=== PATIENT | female | born 1990 | race Caucasian/White ===

== ENCOUNTER 2017-09-24 16:22 | Emergency (ER) | payer SELFPAY | END 2017-09-24 18:26 | disposition home or self-care (01) | PROVIDERS: Emergency Provider Nurse Practitioner Family; Visit Provider Nurse Practitioner Family | DX: J20.9 Acute bronchitis, unspecified (principal) | CPT/HCPCS: 71020; 99201 ==

== ENCOUNTER 2017-12-25 18:28 | Emergency (ER) | payer SELFPAY ==
[2017-12-25 18:29] VITALS: BP 115/71; PULSE 79; RESP 20; TEMP 36.9; O2SAT 99; BMI 25.7
--- NOTE | 2017-12-25 19:07 | HMH.EDUROGF ---
ED Disposition Clinical Impression: First trimester bleeding Disposition: Home, Self-Care Condition on Discharge: Fair Additional Instructions: 1- no sex or vaginal douches. 2- continue PNV. 3- rest and off work x 3 days. 4- B HCG outpatietn order 12/28/17. 5- follow up with dr Brower on MoDAY 12/29/17. 6- OBSERVE FOR ANY MORE BLEEDING, AND RETURN FOR BLOOD MORE THAN 5 PADS A DAY. Referrals: Mamadou Stephenson MD [Primary Care Provider] - - Critical Care Critical Care Time: No Attestation: On 12/25/17, the high probability of a clinically significant, sudden or life threatening deterioration of the following system(s) required my full and direct attention, intervention and personal management. The time I documented below is in addition to time spent performing reported procedures but includes the following listed in this critical care notation. Medical Decision Making - Miles Inquiry Pt receiving controlled substance: No Miles was queried for this patient: No Vital Signs: 12/25/17 18:29 Temperature 98.4 F Temperature Source Oral Pulse Rate [Right Radial] 79 Respiratory Rate 20 Blood Pressure [Right Arm] 115/71 Blood Pressure Mean [Right Arm] 85 Blood Pressure Source [Right Arm] Automatic Cuff Blood Pressure Position [Right Arm] Sitting 02 Sat by Pulse Oximetry 99 Oxygen Delivery Method Room Air - Lab Data Lab Results 12/25/17 18:45: Urine HCG, Qual Positive 12/25/17 19:35: WBC 8.4, RBC 4.63, Hgb 13.8, Hct 41.8, MCV 90.3, MCH 29.8, MCHC 33.0, RDW 12.6, Plt Count 271, MPV 9.8, Neut % (Auto) 59.4, Lymph % (Auto) 30.0, [place] % (Auto) 8.7, Eos % (Auto) 1.1, Baso % (Auto) 0.9, Neut # (Auto) 5.0, Lymph # (Auto) 2.5, [place] # (Auto) 0.7, Eos # (Auto) 0.1, Baso # (Auto) 0.1 12/25/17 19:35: Sodium 137, Potassium 3.6, Chloride 105, Carbon Dioxide 22, Anion Gap 13.6, BUN 8, Creatinine 0.46 L, Estimated Creat Clear 196, Estimated GFR 162, Est GFR ( Amer) 196, Glucose 73 L, Calcium 8.9, Total Bilirubin 0.2, AST 3 L, ALT 12, Alkaline Phosphatase 53, Total Protein 7.3, Albumin 3.7, Globulin 3.6 H, Albumin/Globulin Ratio 1.0 L, HCG, Quant [id number] H Result diagrams: 12/25/17 19:35 12/25/17 19:35 Orders (Tests/Meds): ORDERS Category Date Time Status ABO/RH Type Stat BBK 12/25/17 19:35 Received Medical Decision Narrative: The patient did have 83,000 beta-hCG level, I discussed with her in details follow-up plan, need another beta hCG on December 28 and follow-up with Dr. Munoz the next day on December 29. Female Urogenital HPI - General Chief complaint: OB/Uterine Contractions Stated complaint: Preg bleeding Time Seen by Provider: 12/25/17 19:40 Mode of Arrival: Ambulatory Limitations: No Limitations Description of Symptoms (Recalled from ER Triage Doc. by RN): pt had positive preg test and why at work started bleeding , pt staes she passed one lg clot but continues to have some bleeding . no cramping continues to be using the the pad - History of Present Illness HPI Narrative: 27 years old white female 1 para 0 A0. Her last menstrual period was November 06, 2017. The patient underwent positive test. They before going to work she had sexual intercourse with her spouse at 515PM and started spotting. Upon her arrival to work at 540 became heavier and she became concerned she came to the ED. she denies having abdominal pain or pelvic pain. Denies having back pain. MD Complaint: vaginal bleeding Onset (ago): hour(s) (2 hours.) Radiation: non-radiating Relieving factors: none Exacerbating factors: none Sexual activity: yes : yes Associated symptoms: denies other symptoms - Related Data Allergies Allergy/AdvReac Type Severity Reaction Status Date / Time No Known Allergies Allergy Verified 12/25/17 18:[address] [facility] History I have reviewed the patient's past medical history: Yes ROS Obtained: Yes All systems reviewed & no additional complaints Physi
--- NOTE | 2017-12-25 19:11 | ED_ITS ---
ED Disposition Clinical Impression: First trimester bleeding Disposition: Home, Self-Care Condition on Discharge: Fair Additional Instructions: 1- no sex or vaginal douches. 2- continue PNV. 3- rest and off work x 3 days. 4- B HCG outpatietn order 12/28/17. 5- follow up with dr Brower on MoDAY 12/29/17. 6- OBSERVE FOR ANY MORE BLEEDING, AND RETURN FOR BLOOD MORE THAN 5 PADS A DAY. Referrals: Mamadou Stephenson MD [Primary Care Provider] - - Critical Care Critical Care Time: No Attestation: On 12/25/17, the high probability of a clinically significant, sudden or life threatening deterioration of the following system(s) required my full and direct attention, intervention and personal management. The time I documented below is in addition to time spent performing reported procedures but includes the following listed in this critical care notation. Medical Decision Making - Miles Inquiry Pt receiving controlled substance: No Miles was queried for this patient: No Vital Signs: 12/25/17 18:29 Temperature 98.4 F Temperature Source Oral Pulse Rate [Right Radial] 79 Respiratory Rate 20 Blood Pressure [Right Arm] 115/71 Blood Pressure Mean [Right Arm] 85 Blood Pressure Source [Right Arm] Automatic Cuff Blood Pressure Position [Right Arm] Sitting 02 Sat by Pulse Oximetry 99 Oxygen Delivery Method Room Air - Lab Data Lab Results 12/25/17 18:45: Urine HCG, Qual Positive 12/25/17 19:35: WBC 8.4, RBC 4.63, Hgb 13.8, Hct 41.8, MCV 90.3, MCH 29.8, MCHC 33.0, RDW 12.6, Plt Count 271, MPV 9.8, Neut % (Auto) 59.4, Lymph % (Auto) 30.0 , [place] % (Auto) 8.7, Eos % (Auto) 1.1, Baso % (Auto) 0.9, Neut # (Auto) 5.0, Lymph # (Auto) 2.5, [place] # (Auto) 0.7, Eos # (Auto) 0.1, Baso # (Auto) 0.1 12/25/17 19:35: Sodium 137, Potassium 3.6, Chloride 105, Carbon Dioxide 22, Anion Gap 13.6, BUN 8, Creatinine 0.46 L, Estimated Creat Clear 196, Estimated GFR 162, Est GFR ( Amer) 196, Glucose 73 L, Calcium 8.9, Total Bilirubin 0.2, AST 3 L, ALT 12, Alkaline Phosphatase 53, Total Protein 7.3, Albumin 3.7, Globulin 3.6 H, Albumin/Globulin Ratio 1.0 L, HCG, Quant [id number] H Result diagrams: 12/25/17 19:35 12/25/17 19:35 Orders (Tests/Meds): ORDERS Category Date Time Status ABO/RH Type Stat BBK 12/25/17 19:35 Received Medical Decision Narrative: The patient did have 83,000 beta-hCG level, I discussed with her in details follow-up plan, need another beta hCG on December 28 and follow-up with Dr. Munoz the next day on December 29. Female Urogenital HPI - General Chief complaint: OB/Uterine Contractions Stated complaint: Preg bleeding Time Seen by Provider: 12/25/17 19:40 Mode of Arrival: Ambulatory Limitations: No Limitations Description of Symptoms (Recalled from ER Triage Doc. by RN): pt had positive preg test and why at work started bleeding , pt staes she passed one lg clot but continues to have some bleeding . no cramping continues to be using the the pad - History of Present Illness HPI Narrative: 27 years old white female 1 para 0 A0. Her last menstrual period was November 06, 2017. The patient underwent positive test. They before going to work she had sexual intercourse with her spouse at 515PM and started spotting. Upon her arrival to work at 540 became heavier and she became concerned she came to the ED. she denies having abdominal pain or
[2017-12-25 19:23] LABS: Urine Pregnancy, HCG Qual. Positive (Negative)
[2017-12-25 19:51] LABS: Basophils # 0.1 K/mm3 (0-0.2); Basophils % 0.9 % (0.1-2.0); Eosinophils # 0.1 K/mm3 (0.0-0.4); Eosinophils % 1.1 % (0.1-12.0); Hematocrit 41.8 % (37.0-47.0); Hemoglobin 13.8 g/dL (12.2-16.2); Lymphocytes # 2.5 K/mm3 (0.7-4.5); Mean Corpuscular Hemoglobin 29.8 pg (27.0-31.2); Mean Corpuscular Volume 90.3 fl (81-99); Mean Platelet Volume 9.8 fl (7.4-10.4); Monocytes # 0.7 K/mm3 (0.1-1.0); Monocytes % 8.7 % (1.7-9.3); Neutrophils % 59.4 % (37.0-80.0); Platelet Count 271 K/mm3 (142-424); Red Blood Count 4.63 M/mm3 (4.20-5.40); Red Cell Distribution Width 12.6 % (11.5-17.5); White Blood Count 8.4 K/mm3 (4.8-10.8)
[2017-12-25 20:26] LABS: Alanine Aminotransferase 12 U/L (12-78); Albumin Level 3.7 gm/dL (3.4-5.0); Alkaline Phosphatase 53 U/L (46-116); Anion Gap 13.6 mEq/L (5-15); Aspartate Amino Transferase 3 U/L (15-37); Bilirubin,Total 0.2 mg/dL (0.2-1.0); Blood Urea Nitrogen 8 mg/dL (7-18); Calcium 8.9 mg/dL (8.5-10.1); Carbon Dioxide 22 mmol/L (21.0-32.0); Chloride 105 mmol/L (98-107); Creatinine Clearance Estimated 196 mL/min (0-300); Creatinine,Serum 0.46 mg/dL (0.55-1.02); Estimated Glomerular Filt Rate 162 ml/min (>60); GFR (African American) 196 ML/MIN (>60); Globulin 3.6 gm/dl (1.3-3.2); Glucose 73 mg/dL (74-106); Potassium 3.6 mmoL/L (3.5-5.1); Sodium 137 mmol/L (136-145); Total Protein,Serum 7.3 gm/dL (6.4-8.2)
[2017-12-25 20:27] LABS: HCG,Quantitative 83681 mIU/mL
[2017-12-25 20:40] VITALS: BP 113/66; PULSE 76; RESP 20; TEMP 36.8; O2SAT 98
== END 2017-12-25 20:41 | disposition home or self-care (01) ==
PROVIDERS: Emergency Provider Emergency Medicine; Family Provider Family Medicine; PCP Family Medicine
DX: O20.9 Hemorrhage in early pregnancy, unspecified (principal); E16.2 Hypoglycemia, unspecified
CPT/HCPCS: 36415; 80053; 81025; 84702; 85025; 86900; 86901; 99211; 99282

== ENCOUNTER → 2017-12-28 12:14 | Outpatient (CLI) | payer SELFPAY | PROVIDERS: Visit Provider Emergency Medicine | DX: O26.851 Spotting complicating pregnancy, first trimester (principal) | CPT/HCPCS: 36415; 84702 ==

== ENCOUNTER → 2018-01-06 15:37 | Outpatient (CLI) | payer OTHER, SELFPAY ==
[2018-01-06 16:13] LABS: Basophils # 0.1 K/mm3 (0-0.2); Basophils % 0.7 % (0.1-2.0); Eosinophils # 0.1 K/mm3 (0.0-0.4); Eosinophils % 1.3 % (0.1-12.0); Hematocrit 43.3 % (37.0-47.0); Hemoglobin 14.7 g/dL (12.2-16.2); Lymphocytes # 1.3 K/mm3 (0.7-4.5); Lymphocytes % 17.3 K/mm3 (10-50); Mean Corpuscular HGB Conc 33.9 g/dL (31.8-35.4); Mean Corpuscular Hemoglobin 30.3 pg (27.0-31.2); Mean Corpuscular Volume 89.3 fl (81-99); Mean Platelet Volume 9.5 fl (7.4-10.4); Monocytes # 0.5 K/mm3 (0.1-1.0); Monocytes % 5.9 % (1.7-9.3); Neutrophils # 5.8 K/mm3 (1.8-7.8); Neutrophils % 74.9 % (37.0-80.0); Platelet Count 245 K/mm3 (142-424); Red Blood Count 4.85 M/mm3 (4.20-5.40); Red Cell Distribution Width 12.4 % (11.5-17.5); White Blood Count 7.8 K/mm3 (4.8-10.8)
[2018-01-08 15:33] LABS: HIV Screen 4th Generation wRfx Non Reactive (Non Reactive); Hepatitis B Surface Antigen Negative (Negative); Hepatitis C Antibody 0.1 s/co ratio (0.0-0.9); Rapid Plasma Reagin Ab Titer Non Reactive (NonRea<1:1)
== END ==
PROVIDERS: Family Provider Family Medicine; PCP Family Medicine; Visit Provider Nurse Practitioner Obstetrics & Gynecology
DX: Z34.90 Encounter for supervision of normal pregnancy, unspecified, unspecified trimester (principal); Z3A.08 8 weeks gestation of pregnancy
CPT/HCPCS: 36415; 85025; 86592; 86703; 86762; 86850; 87340; 87380; G0432

== ENCOUNTER → 2018-01-09 12:25 | Outpatient (CLI) | payer OTHER, SELFPAY ==
--- NOTE | 2018-01-09 12:26 | US_ITS ---
US OB transvaginal HISTORY: Evaluate for early ultrasound gestational age ITS.REASON: US OB- Dates ORDERING PHYSICIAN: Enrique Dominique MD PATIENT AGE: 27 years COMPARISON: None FINDINGS: An intrauterine gestational sac is present with a pole with a crown-rump length of 3.27cm correlating to gestational age of 10w2d. heart tones are present with an FHR of 164 bpm's. Yolk sac is noted. The amnion and chorion have not yet fused. The uterus is retroverted Adnexa: Unremarkable. IMPRESSION: Live intrauterine gestation at 10 weeks 2 days as described above.. Estimated due date by ultrasound is 08/05/2018
== END ==
PROVIDERS: Family Provider Family Medicine; PCP Family Medicine; Visit Provider Nurse Practitioner Obstetrics & Gynecology
DX: O26.841 Uterine size-date discrepancy, first trimester (principal)
CPT/HCPCS: 76830

== ENCOUNTER → 2018-03-17 08:06 | Outpatient (CLI) | payer BC, OTHER, SELFPAY ==
[2018-03-20 03:48] LABS: AFP Value 49.7 ng/mL (.); DIA MoM 0.69 (.); DIA Value 126.13 pg/mL (.); DSR (Second Trimester) 1 IN 10000 (.); Gest. Age on Collection Date 19.9 WEEKS (.); Insulin Dep Diabetes No (.); Maternal Age At EDD 29.5 yr (.); OSBR Risk 1 IN 10000 (.); Results Report (.); hCG MoM 0.73 (.); hCG Value 16453 mIU/mL (.); uE3 MoM 1.14 (.); uE3 Value 1.97 ng/mL (.)
[2018-03-20 06:27] LABS: Gestat. Age Based On EDD (.)
== END ==
PROVIDERS: Visit Provider Nurse Practitioner Obstetrics & Gynecology
DX: Z36.0 Encounter for antenatal screening for chromosomal anomalies (principal)
CPT/HCPCS: 36415; 82106

== ENCOUNTER → 2018-03-19 12:56 | Outpatient (CLI) | payer BC, OTHER, SELFPAY ==
--- NOTE | 2018-03-19 13:03 | US_ITS ---
US OB /maternal detail: INDICATION: ITS.REASON: US OB Complete-20wk Anatomy Scan ORDERING PHYSICIAN: Enrique Dominique MD PATIENT AGE: 28 years TECHNIQUE: ultrasound transabdominal scanning. COMPARISON: No previous relevant studies. FINDINGS: Single viable intrauterine gestation. Cephalic position. Placenta: Anterior placenta grade 1. There is average amount fluid. The cervix appears satisfactory. Closed and measuring 3 cm in length. Complete survey performed and was unremarkable on the submitted images as in PACS. No discrete anomalies identified on survey imaging by technologist. Active fetus. Three-vessel cord with satisfactory umbilical cord insertion. 4- chamber heart noted. Survey of brain & ventricles unremarkable. Face and neck survey unremarkable. Diaphragm and chest views unremarkable. Abdomen: Both kidneys noted and unremarkable. Stomach noted and satisfactory. Spine: Survey of the spine satisfactory with no anomalies identified nor imaged. Both arms and legs noted. Amniotic Fluid: Adequate. Maternal adnexa: No significant findings. Measurements: Average ultrasound age 20w5d. Gestational Age 20w21d. Estimated due date by ultrasound age 1008/01/2018. Estimated weight 359 grams. This is 67 percentile based on estimated due date BPD = 21w0d OFD = 20w5d HC = 20w0d AC = 20w3d FL = 21w0d Heart Rate = 156 bpm Cerebellum = 20w4d Humerus = 20w4d HC/AC is 1.15 (1.09-1.26). CI is 81% (70-86%). FL/BPD is 70%. FL/AC is 23%. IMPRESSION: Single live fetus in cephalic presentation with an average ultrasound age of 20 weeks 5 days. No obvious anomalies. All parameters correlate. Please see above for detail. Anterior grade 1 placenta. No previa or abruption with average appearing amniotic fluid volume
== END ==
PROVIDERS: PCP Family Medicine; Visit Provider Nurse Practitioner Obstetrics & Gynecology
DX: Z36.0 Encounter for antenatal screening for chromosomal anomalies (principal)
CPT/HCPCS: 76811

== ENCOUNTER → 2018-07-01 17:45 | Outpatient (REF) | payer BC, OTHER, SELFPAY | LOC: LAB 17:45 | PROVIDERS: Visit Provider Nurse Practitioner Obstetrics & Gynecology | DX: Z34.90 Encounter for supervision of normal pregnancy, unspecified, unspecified trimester (principal) | CPT/HCPCS: 86403 ==

== ENCOUNTER 2018-07-13 18:15 | Outpatient (CLI) | payer BC, OTHER, SELFPAY ==
[2018-07-13 18:20] VITALS: BP 121/62; PULSE 83; RESP 16; TEMP 37; O2SAT 98; BMI 33.1
[2018-07-13 18:32] VITALS: BMI 33.1
[2018-07-13 18:40] LABS: Microscopic, Urine URINE MICROSCOPIC (MICROSCOPIC)
[2018-07-13 18:45] LABS: Appearance,Urine SL CLOUDY (Clear); Bilirubin,Urine Negative (Negative); Blood, Urine Negative (Negative); Color,Urine YELLOW (Yellow); Glucose,Urine (UA) Negative (Negative); Ketones,Urine Negative (Negative); Leukocyte Esterase,Urine 1+ (Negative); Nitrate,Urine Negative (Negative); Protein,Urine Negative (Negative); Specific Gravity, Urine 1.025 (1.005-1.030); Urobilinogen,Urine 0.2 EU/dl (0.2)
[2018-07-13 18:55] LABS: Bacteria,Urine 4+ /lpf
== END 2018-07-13 20:14 | disposition home or self-care (01) ==
LOC: OBOUT 18:19 → OB 18:20
PROVIDERS: PCP Nurse Practitioner Obstetrics & Gynecology; Visit Provider Obstetrics & Gynecology
DX: O47.03 False labor before 37 completed weeks of gestation, third trimester (principal); Z3A.36 36 weeks gestation of pregnancy
CPT/HCPCS: 59025; 81001; 87086

== ENCOUNTER 2018-07-14 13:41 | Outpatient (CLI) | payer BC, OTHER, SELFPAY ==
[2018-07-14 13:59] VITALS: BP 111/66; PULSE 94; RESP 16; TEMP 36.8; O2SAT 97; BMI 33.1
== END 2018-07-14 14:50 | disposition home or self-care (01) ==
LOC: OBOUT 13:42 → OB 13:43
PROVIDERS: PCP Nurse Practitioner Obstetrics & Gynecology; Visit Provider Nurse Practitioner Obstetrics & Gynecology
DX: O47.03 False labor before 37 completed weeks of gestation, third trimester (principal); Z3A.36 36 weeks gestation of pregnancy
CPT/HCPCS: 59025

== ENCOUNTER 2018-07-24 20:04 | Inpatient (IN) ==
[2018-07-24 20:38] VITALS: BP 119/76
[2018-07-24 20:42] LABS: Microscopic, Urine URINE MICROSCOPIC (MICROSCOPIC)
[2018-07-24 20:53] LABS: Appearance,Urine CLOUDY (Clear); Bilirubin,Urine Negative (Negative); Blood, Urine Negative (Negative); Color,Urine YELLOW (Yellow); Glucose,Urine (UA) Negative (Negative); Ketones,Urine Negative (Negative); Leukocyte Esterase,Urine 2+ (Negative); Protein,Urine Negative (Negative); Specific Gravity, Urine 1.015 (1.005-1.030); Urobilinogen,Urine 0.2 EU/dl (0.2)
[2018-07-24 20:57] LABS: Amorphous Sediment,Urine Trace /lpf; Bacteria,Urine Trace /lpf
[2018-07-25 00:42] LABS: Basophils % 0.4 % (0.1-2.0); Eosinophils # 0.1 K/mm3 (0.0-0.4); Eosinophils % 0.6 % (0.1-12.0); Hematocrit 34.9 % (37.0-47.0); Hemoglobin 11.5 g/dL (12.2-16.2); Lymphocytes # 2.1 K/mm3 (0.7-4.5); Lymphocytes % 23.6 K/mm3 (10-50); Mean Corpuscular Hemoglobin 28.9 pg (27.0-31.2); Mean Corpuscular Volume 87.8 fl (81-99); Mean Platelet Volume 9.4 fl (7.4-10.4); Monocytes # 0.6 K/mm3 (0.1-1.0); Monocytes % 7.2 % (1.7-9.3); Neutrophils # 6.1 K/mm3 (1.8-7.8); Neutrophils % 68.1 % (37.0-80.0); Platelet Count 171 K/mm3 (142-424); Red Blood Count 3.97 M/mm3 (4.20-5.40); Red Cell Distribution Width 13.3 % (11.5-17.5); White Blood Count 8.9 K/mm3 (4.8-10.8)
--- NOTE | 2018-07-25 06:43 | Progress Note ---
Internal Medicine - PN: Subj *Date: 07/25/18 *Time: 06:40 Interval history: This 28-year-old 1, para 0, Ab0 white female was admitted at 38 sevenths weeks last evening with regular contractions at 3 cm of dilatation. She was treated with IV fluids and given a single dose of subcu Brethine, but her contractions persisted and she was observed overnight. The baby has looked good on the monitor. The patient has had no problems during her and a vaginal delivery is anticipated. This morning her cervix is still 3 cm dilated, in spite of regular mild contractions, and IV Pitocin has been begun to augment her labor. An amniotomy revealed minimal fluid, but it appears as though she has been leaking during the night. An internal electrode has been placed. The patient is asking for an epidural, and this will be obtained. Hemoglobin is 11.5 g. Repeat strep is negative. The plan is for continued augmentation and likely vaginal delivery. Exam Vital signs and Labs for Last 24 Hours: Temp Pulse Resp BP Pulse Ox 98.1 F 93 H 18 119/76 99 07/24/18 20:37 07/24/18 20:37 07/24/18 20:37 07/24/18 20:37 07/24/18 20:37 Laboratory Results - last 24 hr 07/24/18 20:20: Urine Color Yellow, Urine Appearance Cloudy, Urine pH 7.0, Ur Specific [place] 1.015, Urine Protein Negative, Urine Glucose (UA) Negative, Urine Ketones Negative, Urine Blood Negative, Urine Nitrate Negative, Urine Bilirubin Negative, Urine Urobilinogen 0.2, Ur Leukocyte Esterase 2+ A, Urine WBC 10-20, Amorphous Sediment Trace, Urine Bacteria Trace 07/25/18 00:26: Blood Type B Positive, Antibody Screen Negative 07/25/18 00:26: WBC 8.9, RBC 3.97 L, Hgb 11.5 L, Hct 34.9 L, MCV 87.8, MCH 28.9, MCHC 33.0, RDW 13.3, Plt Count 171, MPV 9.4, Neut % (Auto) 68.1, Lymph % (Auto) 23.6, [place] % (Auto) 7.2, Eos % (Auto) 0.6, Baso % (Auto) 0.4, Neut # (Auto) 6.1, Lymph # (Auto) 2.1, [place] # (Auto) 0.6, Eos # (Auto) 0.1, Baso # (Auto) 0.0 I & O for Last 24 hours: Intake & Output 07/22/18 07/23/18 07/24/18 07/25/18 11:59 11:59 11:59 11:59 Weight 193 lb
--- NOTE | 2018-07-25 07:55 | Progress Note ---
[facility] Anesthesia Checklist - Patient Identification Patient Identification: Arm Band, Verbal (Name & ) - Structural Data Admitted From: Home Consent for Planned Operative Procedure(s) Verified: Yes Verified Documents: Surgical Consent, History and Physical - Chart Verification Results Verified: CBC - Additional verifications Patient : Yes Anesthesia Reactions: No - Airway Assessment C-Spine Mobility Assessed: Yes TMJ Mobility Assessed: Yes Dentition: Good Dentition - Neurological Assessment Level of Consciousness: Awake Hx Seizures: No Numbness or tingling in extremities: No - Anesthesia Plan Anesthesia Risk discussed: Yes Anesthesia Plan: Verified ASA Class: II Anesthesia Type: Epidural [facility] History I have reviewed the patient's past medical history: Yes Medical History: Denies:: Anxiety, Depression, Diabetes Mellitus Type 1, Hypertension, Migraine, MRSA Other Surgeries: Yes: Other ([place]). No: Amputation: No Fractures: No - *Social History Educational Level: Completed High School Smoking Status: Never smoker Alcohol Intake: never Substance Use Type: denies use Occupational Status: unemployed - Psychiatric History Expresses thoughts of harming self/others: None Suicide Plan Description: No Plan Pschychiatric History:: Denies:: Anxiety, Depression *Family Hx:: No significant family history Para: 0
--- NOTE | 2018-07-25 08:42 | Progress Note ---
Internal Medicine - PN: Subj *Date: 07/25/18 *Time: 08:40 Interval history: Cervix is now 4 cm, 90%, with a presenting vertex at -1 station. An internal monitor is completely applied and her epidural is in and working well. IV Pitocin continues. Exam Vital signs and Labs for Last 24 Hours: Temp Pulse Resp BP Pulse Ox 98.1 F 93 H 18 119/76 99 07/24/18 20:37 07/24/18 20:37 07/24/18 20:37 07/24/18 20:37 07/24/18 20:37 Laboratory Results - last 24 hr 07/24/18 20:20: Urine Color Yellow, Urine Appearance Cloudy, Urine pH 7.0, Ur Specific [place] 1.015, Urine Protein Negative, Urine Glucose (UA) Negative, Urine Ketones Negative, Urine Blood Negative, Urine Nitrate Negative, Urine Bilirubin Negative, Urine Urobilinogen 0.2, Ur Leukocyte Esterase 2+ A, Urine WBC 10-20, Amorphous Sediment Trace, Urine Bacteria Trace 07/25/18 00:26: Blood Type B Positive, Antibody Screen Negative 07/25/18 00:26: WBC 8.9, RBC 3.97 L, Hgb 11.5 L, Hct 34.9 L, MCV 87.8, MCH 28.9, MCHC 33.0, RDW 13.3, Plt Count 171, MPV 9.4, Neut % (Auto) 68.1, Lymph % (Auto) 23.6, [place] % (Auto) 7.2, Eos % (Auto) 0.6, Baso % (Auto) 0.4, Neut # (Auto) 6.1, Lymph # (Auto) 2.1, [place] # (Auto) 0.6, Eos # (Auto) 0.1, Baso # (Auto) 0.0 I & O for Last 24 hours: Intake & Output 07/22/18 07/23/18 07/24/18 07/25/18 11:59 11:59 11:59 11:59 Weight 193 lb
--- NOTE | 2018-07-25 12:44 | Progress Note ---
Internal Medicine - PN: Subj *Date: 07/25/18 *Time: 12:43 Interval history: After her amnioinfusion for a run of deep decelerations, the baby is stabilized and [employer] is now normal. Cervix is now completely effaced, completely dilated, with a presenting vertex at +1 station. Plan is for vaginal delivery. Exam Vital signs and Labs for Last 24 Hours: Temp Pulse Resp BP Pulse Ox 98.1 F 93 H 18 119/76 99 07/24/18 20:37 07/24/18 20:37 07/24/18 20:37 07/24/18 20:37 07/24/18 20:37 Laboratory Results - last 24 hr 07/24/18 20:20: Urine Color Yellow, Urine Appearance Cloudy, Urine pH 7.0, Ur Specific [place] 1.015, Urine Protein Negative, Urine Glucose (UA) Negative, Urine Ketones Negative, Urine Blood Negative, Urine Nitrate Negative, Urine Bilirubin Negative, Urine Urobilinogen 0.2, Ur Leukocyte Esterase 2+ A, Urine WBC 10-20, Amorphous Sediment Trace, Urine Bacteria Trace 07/25/18 00:26: Blood Type B Positive, Antibody Screen Negative 07/25/18 00:26: WBC 8.9, RBC 3.97 L, Hgb 11.5 L, Hct 34.9 L, MCV 87.8, MCH 28.9, MCHC 33.0, RDW 13.3, Plt Count 171, MPV 9.4, Neut % (Auto) 68.1, Lymph % (Auto) 23.6, [place] % (Auto) 7.2, Eos % (Auto) 0.6, Baso % (Auto) 0.4, Neut # (Auto) 6.1, Lymph # (Auto) 2.1, [place] # (Auto) 0.6, Eos # (Auto) 0.1, Baso # (Auto) 0.0 I & O for Last 24 hours: Intake & Output 07/23/18 07/24/18 07/25/18 07/26/18 11:59 11:59 11:59 11:59 Weight 193 lb
--- NOTE | 2018-07-25 13:42 | Progress Note ---
Delivery date: 07/25/18 Events: Labor Augmentation Intrapartal events: Deceleration Induction method: per pitocin protocol Delivery augmentation: pitocin Delivery monitor: internal FHT, internal uterine Route of delivery: forceps Indication for instrumentation: maternal exhaustion Episiotomy description: None Laceration description: Perineal - 2nd Degree Delivery repair: vicryl Estimated blood loss (mL): 350 Anesthesia type: Epidural Disposition: floor Complications: None Narrative: This 28-year-old 1, now para 1, white female is admitted at 38-2/7 weeks on the evening of 07/24/18 with regular contractions at 3 cm of dilatation. She was observed overnight and continued to contract, but her cervix did not significantly change. At 4 cm of dilatation, she began to be augmented with intravenous Pitocin, and labored under a labor epidural, which worked well. At one point she had a run of decelerations, which was treated with amnioinfusion, after which resolution occurred. She went steadily to completion on 07/25/18 at 1230, but pushed ineffectively. She was delivered by outlet forceps, without an episiotomy. There was no meconium. There was a nuchal cord x1, which was easily reduced. The baby's nasal and oropharynx were bulb suction, and the baby cried spontaneously on the perineum, as was delivered. The cord was clamped and cut, 3 vessels were noted to be within the cord, and cord blood was obtained. The cord pH is pending. The baby was handed into the arms of the attending RN, who assigned Apgars of 8 at 1 minute and 9 at 5 minutes to the 7 pound 2 ounce, 19 inch male , born at 1319. The placenta delivered spontaneously, intact, at 1321, making the total time in labor 17 hours 21 minutes. The uterus was inspected and was felt to be clean, and was involuting well, with IV Pitocin running. There was a second-degree midline perineal laceration, which was closed in the usual fashion, in layers, with 2-0 Vicryl. The rectovaginal septum was examined,and was intact at the close of the procedure. The estimated blood loss was 350 cc. The sponge and needle was correct. The patient tolerated the procedure well, and was recovered in excellent condition. The patient's blood type is B+. Her rubella titer is immune. She plans to breast- feed.
[2018-07-26 06:02] LABS: Hematocrit 29.5 % (37.0-47.0); Hemoglobin 9.7 g/dL (12.2-16.2)
--- NOTE | 2018-07-26 10:11 | Progress Note ---
Internal Medicine - PN: Subj *Date: 07/26/18 *Time: 10:10 (This is day #1. The patient is afebrile. Vital signs stable. Lochia normal. Uterine fundus involuting well. Nursing well. Perineum healing well. Hemoglobin 9.7 g, but clinically stable. Impression: Stable. Probably home tomorrow.) Exam Vital signs and Labs for Last 24 Hours: Temp Pulse Resp BP Pulse Ox 98.1 F 93 H 18 119/76 99 07/24/18 20:37 07/24/18 20:37 07/24/18 20:37 07/24/18 20:37 07/24/18 20:37 Laboratory Results - last 24 hr 07/25/18 13:19: Cord ABG pH 7.30 L 07/26/18 05:50: Hgb 9.7 L, Hct 29.5 L I & O for Last 24 hours: Intake & Output 07/23/18 07/24/18 07/25/18 07/26/18 11:59 11:59 11:59 11:59 Weight 193 lb Microbiology Reports for the Last 24 Hours: Microbiology 07/24/18 20:20 Urine,Clean Catch Urine Culture - Final Multiple organisms, suggests contamination.
--- NOTE | 2018-07-27 08:37 | Discharge Summary ---
General - General Admission date:: 07/24/18 Discharge date: 07/27/18 HPI HPI: She is a 28-year-old 1 para 0 at 38 and 3 weeks gestational age. She arrived in active labor. Hospital Course Hospital Course: She was admitted and delivered with the assistance of forceps by Dr. Kelly. She delivered with the assistance of forceps a liveborn male child weighing 7 pounds 2 ounces 19 inches long on July 25, 2018. The baby had Apgars of 8 at 1 minute and 9 at 5 minutes. She has done well and has remained febrile with her hospitalization. She is eating and. She is breast-feeding. She has B+ blood, she fell immune and was group B Streptococcus negative. She is discharged home to follow-up with me in approximately 2 weeks time. She will continue with her vitamins and iron. She will continue with her breast-feeding. Objective Vital signs: Temp Pulse Resp BP Pulse Ox 98.1 F 93 H 18 119/76 99 07/24/18 20:37 07/24/18 20:37 07/24/18 20:37 07/24/18 20:37 07/24/18 20:37 no acute distress DS: Diagnosis - Discharge Diagnosis (1) Normal delivery Status: Acute (2) Forceps delivery with baby delivered Status: Acute Discharge Plan - Patient Discharge Instructions ACTIVITY: No heavy lifting DIET: continue same diet Additional Instructions: No heavy lifting, no strenuous activity, nothing in the vagina for 6 weeks. Patient Instructions: Depression, Hemorrhage, DI for Labor and Delivery, Vaginal , Post Discharge Instructions - Follow up Plan Follow up with: Enrique Dominique MD [Staff Physician] - Disposition: Home, Self-Long-Term Medications: Home Medications Medication Instructions Recorded Confirmed Type vit no.95-ferrous 1 tab PO DAILY 01/06/18 07/24/18 History fumarate 28 mg-folic acid 800 mcg tablet Ferrous Sulfate 325 mg PO DAILY 07/13/18 07/25/18 History Prescriptions/Medication Reconciliation: Continue vit no.95-ferrous fumarate 28 mg-folic acid 800 mcg tablet 1 tab PO DAILY Ferrous Sulfate 325 mg PO DAILY
== END 2018-07-27 09:50 | disposition home or self-care (01) ==
LOC: OBOUT 20:04 → OB 20:05
PROVIDERS: ADMIT Obstetrics & Gynecology; ATTEND Obstetrics & Gynecology

== ENCOUNTER 2018-11-19 15:00 | Outpatient (RCR) | payer BC, SELFPAY ==
--- NOTE | 2018-11-03 15:32 | HMH.PTOPEV ---
PT Outpatient Evaluation Rehab PT Outpatient Evaluation Start: 11/03/18 15:13 Freq: Status: Active Protocol: Document 11/03/18 15:14 [place] (Rec: 11/03/18 15:31 DUC [id number]) Electronically Signed By Martin Mcdonald, ANDERSON 11/03/18 15:14 Outpatient Therapy Subjective History Subjective History This is the initial Physical Therapy evaluation for Giselle Lowe. Pt is a 28 y/o female referred to PT for c/o LBP. Pt reports she recently gave and had LBP during and after delivery. Pt reports pain in lumbar area began during third trimester, and has continued. Pt reports pain increases in lumbosacral area w/ carrying and picking up child. Chief Complaint Pain Spasms Stiff Symptom Type Ache Throb Dull Symptoms Relieved By Rest/Positioning Symptoms Aggravated By Standing Bending/Stooping Physical Activity Lifting Prior Functional Limitations None Current Functional Limitations Lifting Housework Standing Recreation Activity Bending/Stooping Symptom Description Intermittent Level of pain today (0-10) 3 Pain scale - at its best (0-10) 0 Pain scale - at its worst (0-10) 3 Lumbopelvic Eval Palapation tenderness bilateral thoracic spinal tenderness No lumbar spinal tenderness Yes paraspinal tenderness Yes buttock tenderness No tenderness over symphysis pubis No Lumbar/Sacral Palpation Findings Tenderness Lumbar/Sacral Palpation Overall Comment TTP along SIJ Accessory Movement L3 bilateral L4 bilateral L5 bilateral Range of Motion Lumbar Spine Active Flexion Range of 70 Motion (degrees) Lumbar Spine Active Extension Range of 20 Motion (degrees) Left Lumbar Spine Lateral Flexion Active 30 Range of Motion (degrees) Right Lumbar Spine Lateral Flexion 30 Active Range of Motion (degrees) Lumbar Spine ROM Reason Not Measured Within Functional Limits Special Tests Lumbar Spine Screen Positive
== END 2018-11-19 15:05 | disposition home or self-care (01) ==
LOC: PT 15:00
PROVIDERS: Visit Provider Family Medicine
DX: S16.1XXA Strain of muscle, fascia and tendon at neck level, initial encounter (principal); S39.012D Strain of muscle, fascia and tendon of lower back, subsequent encounter
CPT/HCPCS: 97010; 97014; 97110; 97140; 97163; G0283

== ENCOUNTER 2018-12-09 10:47 | Outpatient (RCR) | payer BC, SELFPAY ==
--- NOTE | 2018-12-09 11:55 | HMH.PTOPEV ---
PT Outpatient Evaluation Rehab PT Outpatient Evaluation Start: 12/09/18 10:57 Freq: Status: Active Protocol: Document 12/09/18 11:32 PHORKATERINE (Rec: 12/09/18 11:55 PHORNE [id number]) Electronically Signed By Eldon Kovacs, PT 12/09/18 11:32 Outpatient Therapy Subjective History Subjective History Pt is a 28 yowf with complaints of knee pain and weakness. Pt reports twisting knee a month ago while stepping up a step at home and her foot moved out from under her. Pt states the next week, she heard a pop and her medial knee went numb. Pt states 2 days later she fell on her left knee. Pt reports side stepping a week later and had pain in her mid knee. Pt reports seeing Oskar Stephenson 2 weeks ago who said the knee is severely twisted. X-rays were negative for the left knee. Pt reports pain at the moment 2/10, 1/10 at best, and 4/10 at worst. Pt describes pain as ache, sharp and numbness along the lateral and medial midline of the knee. Pt reports nothing makes the pain better and pain is increased when moving the knee and WB on knee. Pt reports tightness of the left calf. Pt denies significant surgeries or comorbidities. Chief Complaint Pain Clicks Gives out/Unstable Weakness Symptom Type Ache Sharp Stabbing Numbness Tingling Symptoms Relieved By Nothing Symptoms Aggravated By Sitting Standing Bending/Stooping Physical Activity Twisting Walking Lifting Prior Functional Limitations None Current Functional Limitations Lifting Housework
== END 2018-12-09 10:55 | disposition home or self-care (01) ==
LOC: PT 10:47
PROVIDERS: Visit Provider Nurse Practitioner Family
DX: M25.562 Pain in left knee (principal)
CPT/HCPCS: 97110; 97163

== ENCOUNTER → 2018-12-15 14:14 | Outpatient (CLI) | payer BC, SELFPAY ==
--- NOTE | 2018-12-15 14:21 | MR_ITS ---
MR knee LT wo con HISTORY: Twisting injury with pain ITS.REASON: INSTABILITY OF LEFT KNEE JOINT, LEFT KNEE PAIN ORDERING PHYSICIAN: Joselyn Johnson MD PATIENT AGE: 28 years Comparison: 11/22/2018 TECHNIQUE: Standard multiplanar multiecho sequences are performed without contrast. FINDINGS: The cruciate ligaments are unremarkable. The collateral ligaments, patellar tendon, and quadriceps tendon have an unremarkable appearance. No evidence of meniscal tear. The patellar cartilage is well preserved. There is a small amount of fluid within the knee joint. No Samaniego's cyst evident. No bone bruise or fracture IMPRESSION: No evidence of internal derangement or other acute findings Small knee joint effusion
== END ==
PROVIDERS: PCP Family Medicine; Visit Provider Family Medicine
DX: M25.562 Pain in left knee (principal); M25.362 Other instability, left knee
CPT/HCPCS: 73721

== ENCOUNTER → 2018-12-23 08:45 | Outpatient (CLI) | payer BC, SELFPAY ==
--- NOTE | 2018-12-23 08:48 | XR_ITS ---
XR knee LT 4V HISTORY: Pain following injury ITS.REASON: 4 views weightbearing ORDERING PHYSICIAN: Mayra Oleary MD PATIENT AGE: 28 years COMPARISON: 11/22/2018 FINDINGS: Weightbearing views are performed along with a patellar view. No fracture or dislocation. No lytic or blastic change. No significant arthritic changes. IMPRESSION: Negative left knee, no acute finding
== END ==
PROVIDERS: PCP Family Medicine; Visit Provider Orthopaedic Surgery
DX: M25.562 Pain in left knee (principal)
CPT/HCPCS: 73564

== ENCOUNTER 2018-12-29 11:24 | Outpatient (RCR) | payer BC, SELFPAY | END 2018-12-29 11:30 | disposition home or self-care (01) | LOC: PT 11:24 | PROVIDERS: Visit Provider Orthopaedic Surgery | DX: M25.562 Pain in left knee (principal) | CPT/HCPCS: 97760 ==

== ENCOUNTER 2019-03-14 14:34 | Emergency (ER) | payer BC, SELFPAY ==
[2019-03-14 15:00] VITALS: BP 123/78; PULSE 72; RESP 18; TEMP 36.6; O2SAT 99; BMI 33.1
--- NOTE | 2019-03-14 15:15 | HMH.EDUTC ---
[facility] [place] Disposition Clinical Impression: Migraine Qualifiers: Migraine type: unspecified Status migrainosus presence: without status migrainosus Intractability: not intractable Qualified Code(s): G43.909 - Migraine, unspecified, not intractable, without status migrainosus Disposition: Home, Self-Care Condition on Discharge: Good Instructions: Migraine Headaches (Alternative Therapy), Migraine Headaches (Alternative Therapy), Migraine -- Adult, DI for Migraine, DI for Chronic Pain -- Adult Additional Instructions: Go home lay down and try to sleep off remaining of Migraine headache No Motrin or Ibuprofen for the next 8 hours Follow up with family doctor if headache returns Straight to ER if any life threatening symptoms REturn if needed Referrals: Mamadou Stephenson MD [Primary Care Provider] - As needed Time of Disposition: 15:56 Medical Decision Making - Miles Inquiry Pt receiving controlled substance: No Miles was queried for this patient: No Vital Signs: 03/14/19 15:00 Temperature 97.9 F Temperature Source Oral Pulse Rate [Right Brachial] 72 Respiratory Rate 18 Blood Pressure [Right Arm] 123/78 Blood Pressure Mean [Right Arm] 93 Blood Pressure Source [Right Arm] Automatic Cuff Blood Pressure Position [Right Arm] Sitting 02 Sat by Pulse Oximetry 99 Oxygen Delivery Method Room Air Orders (Tests/Meds): ED MEDICATIONS Discontinued Medications Generic Name Dose Route Start Last Admin Trade Name Christopher PRN Reason Stop Dose Admin Diphenhydramine HCl 25 mg 03/14/19 15:24 03/14/19 15:31 Benadryl 50mg/1ml Vial IM 03/14/19 15:25 25 mg ONCE ONE Administration Ketorolac Tromethamine 60 mg 03/14/19 15:24 03/14/19 15:31 Toradol 60mg/2ml Vial IM 03/14/19 15:25 60 mg ONCE ONE Administration Ondansetron HCl 4 mg 03/14/19 15:24 03/14/19 15:31 Zofran 4mg Odt SL 03/14/19 15:25 4 mg ONCE ONE Administration - Reevaluation(s) Time: 15:57 Reevaluation #1: Patient states that headache is much better patient to be dc'd home [facility] [place] HPI - General Stated complaint: headache Time Seen by Provider: 03/14/19 15:17 Mode of Arrival: Family Vehicle Source of Information: Patient Limitations: No Limitations Description of Symptoms (Recalled from Triage Doc. by RN): C/O HEADACHE SINCE FRIDAY NIGHT. NO RELIEF FROM ANYTHING SHE HAS TAKEN HEENT Symptoms (Recalled from RN notes): Yes Resp Symptoms (Recalled from RN notes): No Skin Symptoms (Recalled from RN notes): No MS Symptoms (Recalled from RN notes): No Functional Status (Recalled from RN notes): N/A - History of Present Illness Provider Complaint: Patient states that she has a history of Migraine headaches State that she started having a headache on Friday and has taken over the counter medication but nothing has helped State that she wasn't able to go to work today and came in to see if she could get something for it - Related Data Previous Rx's Medication Instructions Recorded sertraline 50 mg tablet 50 mg PO DAILY #30 tab 02/17/19 Allergies Allergy/AdvReac Type Severity Reaction Status Date / Time No Known Allergies Allergy Verified 02/11/19 09:18 - Worker's Comp Is this a Worker's Comp case?: No [facility] History - Hepatitis A Screen Drug use history?: No High risk sexual behaviors?: No History of sexually transmitted infection?: No Currently employed?: No Childcare worker?: No Do you have indoor plumbing?: Yes Do you have electricity?: Yes Attestation statement:: This patient has been screened for Hepatitis A risk factors. I have reviewed the patient's past medical history: Yes Medical History: Denies:: Anxiety, Depression, Diabetes Mellitus Type 1, Hypertension, Migraine, MRSA, Seizures Laterality Cases: Bilateral: Other Other Surgeries: Yes: Other. No: Amputation: No Fractures: No Comment: Vaginal delivery 5 months ago. - Social History Smoking Status: Never smoker Alcohol Intake: katherine
--- NOTE | 2019-03-14 15:21 | ED_ITS ---
[facility] [place] Dis[place] Clinical Impression: Migraine Qualifiers: Migraine type: unspecified Status migrainosus presence: without status migrainosus Intractability: not intractable Qualified Code(s): G43.909 - Migraine, unspecified, not intractable, without status migrainosus Disposition: Home, Self-Care Condition on Discharge: Good Instructions: Migraine Headaches (Alternative Therapy), Migraine Headaches (Alternative Therapy), Migraine -- Adult, DI for Migraine, DI for Chronic Pain -- Adult Additional Instructions: Go home lay down and try to sleep off remaining of Migraine headache No Motrin or Ibuprofen for the next 8 hours Follow up with family doctor if headache returns Straight to ER if any life threatening symptoms REturn if needed Referrals: Mamadou Stephenson MD [Primary Care Provider] - As needed Time of Disposition: 15:56 Medical Decision Making - Miles Inquiry Pt receiving controlled substance: No Miles was queried for this patient: No Vital Signs: 03/14/19 15:00 Temperature 97.9 F Temperature Source Oral Pulse Rate [Right Brachial] 72 Respiratory Rate 18 Blood Pressure [Right Arm] 123/78 Blood Pressure Mean [Right Arm] 93 Blood Pressure Source [Right Arm] Automatic Cuff Blood Pressure Position [Right Arm] Sitting 02 Sat by Pulse Oximetry 99 Oxygen Delivery Method Room Air Orders (Tests/Meds): ED MEDICATIONS Discontinued Medications Generic Name Dose Route Start Last Admin Trade Name Christopher PRN Reason Stop Dose Admin Diphenhydramine HCl 25 mg 03/14/19 15:24 03/14/19 15:31 Benadryl 50mg/1ml Vial IM 03/14/19 15:25 25 mg ONCE ONE Administration Ketorolac Tromethamine 60 mg 03/14/19 15:24 03/14/19 15:31 Toradol 60mg/2ml Vial IM 03/14/19 15:25 60 mg ONCE ONE Administration Ondansetron HCl 4 mg 03/14/19 15:24 03/14/19 15:31 Zofran 4mg Odt SL 03/14/19 15:25 4 mg ONCE ONE Administration - Reevaluation(s) Time: 15:57 Reevaluation #1: Patient states that headache is much better patient to be dc'd home [facility] [place] HPI - General Stated complaint: headache Time Seen by Provider: 03/14/19 15:17 Mode of Arrival: Family Vehicle Source of Information: Patient Limitations: No Limitations Description of Symptoms (Recalled from Triage Doc. by RN): C/O HEADACHE SINCE FRIDAY NIGHT. NO RELIEF FROM ANYTHING SHE HAS TAKEN HEENT Symptoms (Recalled from RN notes): Yes Resp Symptoms (Recalled from RN notes): No Skin Symptoms (Recalled from RN notes): No MS Symptoms (Recalled from RN notes): No Functional Status (Recalled from RN notes): N/A - History of Present Illness Provider Complaint: Patient states that she has a history of Migraine headaches State that she started having a headache on Friday and has taken over the counter medication but nothing has helped State that she wasn't able to go to work today and came in to see if she could get something for it - Related Data Previous Rx's Medication Instructions Recorded sertraline 50 mg tablet 50 mg PO DAILY #30 tab 02/17/19 Allergies Allergy/AdvReac Type Severity Reaction Status Date / Time No Known Allergies Allergy Verified 02/11/19 09:18
[2019-03-14 16:00] VITALS: BP 123/78; PULSE 72; RESP 18; TEMP 36.6; O2SAT 99
== END 2019-03-14 16:02 | disposition home or self-care (01) ==
PROVIDERS: Emergency Provider Nurse Practitioner; PCP Family Medicine
DX: G43.909 Migraine, unspecified, not intractable, without status migrainosus (principal)
CPT/HCPCS: 90471; 96372; 99201

== ENCOUNTER → 2019-10-11 12:14 | Outpatient (CLI) | payer OTHER, BC, SELFPAY ==
--- NOTE | 2019-10-11 12:21 | XR_ITS ---
PROCEDURE: XR FOOT LT MIN 3V CLINICAL INDICATION: LT FOOT PAIN, WORKPLACE ACCIDENT COMPARISON: No exams were available for comparison FINDINGS: No fracture or dislocation. No lytic or blastic change. There is normal mineralization. The joint spaces are well-preserved. No significant degenerative/arthritic changes. No erosive changes evident. Other findings:None. IMPRESSION: No acute findings. Dictated by: Dr. Tomy Key MD 10/11/2019 13:[address] Tomy Key MD in [place] 10/11/2019 13:49
== END ==
PROVIDERS: PCP Family Medicine; Visit Provider Family Medicine
DX: M79.672 Pain in left foot (principal); Y99.0 Civilian activity done for income or pay
CPT/HCPCS: 73630

== ENCOUNTER 2020-02-11 21:51 | Emergency (ER) | payer BC, SELFPAY ==
[2020-02-11 22:01] VITALS: BP 117/68; PULSE 89; RESP 16; TEMP 37.2; O2SAT 98; BMI 32.5
[2020-02-11 22:28] LABS: Microscopic, Urine URINE MICROSCOPIC (MICROSCOPIC)
[2020-02-11 22:29] LABS: Basophils # 0.1 K/mm3 (0-0.2); Eosinophils # 0.1 K/mm3 (0.0-0.4); Eosinophils % 1.2 % (0.1-12.0); Hematocrit 41.9 % (37.0-47.0); Hemoglobin 13.9 g/dL (12.2-16.2); Lymphocytes # 2.2 K/mm3 (0.7-4.5); Lymphocytes % 27.9 % (10-50); Mean Corpuscular HGB Conc 33.1 g/dL (31.8-35.4); Mean Corpuscular Hemoglobin 29.2 pg (27.0-31.2); Mean Corpuscular Volume 88.4 fl (81-99); Mean Platelet Volume 8.8 fl (7.4-10.4); Monocytes # 0.5 K/mm3 (0.1-1.0); Monocytes % 5.7 % (1.7-9.3); Neutrophils # 5.1 K/mm3 (1.8-7.8); Neutrophils % 64.1 % (37.0-80.0); Platelet Count 245 K/mm3 (142-424); Red Blood Count 4.74 M/mm3 (4.20-5.40); Red Cell Distribution Width 12.4 % (11.5-17.5)
[2020-02-11 22:30] LABS: Appearance,Urine CLOUDY (Clear); Bilirubin,Urine Negative (Negative); Blood, Urine Negative (Negative); Color,Urine YELLOW (Yellow); Glucose,Urine (UA) Negative (Negative); Ketones,Urine Negative (Negative); Leukocyte Esterase,Urine Negative (Negative); Nitrate,Urine Negative (Negative); Protein,Urine Negative (Negative); Specific Gravity, Urine >= 1.030 (1.005-1.030); Urobilinogen,Urine 0.2 EU/dl (0.2)
[2020-02-11 22:34] LABS: Chloride 106 mmol/L (98-107); Potassium 3.9 mmoL/L (3.5-5.1); Sodium 140 mmol/L (136-145)
[2020-02-11 22:34] LABS: Amorphous Sediment,Urine 4+ /lpf; Urine Pregnancy, HCG Qual. Negative (Negative)
[2020-02-11 22:36] LABS: Blood Urea Nitrogen 15 mg/dl (7-17); Creatinine Clearance Estimated 158 mL/min (50-200); Estimated Glomerular Filt Rate 98 ml/min (>60); GFR (African American) 118 ML/MIN (>60)
[2020-02-11 22:37] LABS: Alanine Aminotransferase 23 U/L (12-78); Albumin Level 4.2 g/dl (3.5-5.0); Albumin/Globulin Ratio 1.5 (1.1-1.8); Alkaline Phosphatase 58 U/L (38-126); Anion Gap 11.9 mEq/L (5-15); Aspartate Amino Transferase 24 U/L (14-36); Bilirubin,Total 0.2 mg/dl (0.2-1.3); Calcium 9.5 mg/dl (8.4-10.2); Carbon Dioxide 26 mmol/L (22.0-30.0); Globulin 2.8 g/dL (1.3-3.2); Glucose 103 mg/dl (74-100)
[2020-02-11 22:42] LABS: C-Reactive Protein 5.7 mg/L (0-4)
--- NOTE | 2020-02-11 22:48 | HMH.EDHA ---
ED Disposition Clinical Impression: Migraine Qualifiers: Migraine type: without aura Status migrainosus presence: without status migrainosus Intractability: not intractable Qualified Code(s): G43.009 - Migraine without aura, not intractable, without status migrainosus Disposition: Home, Self-Care Condition on Discharge: Good Instructions: DI for Migraine Additional Instructions: call pcp for follow up Referrals: Mamadou Stephenson MD [Primary Care Provider] - - Critical Care Critical Care Time: No Attestation: On 02/11/20, the high probability of a clinically significant, sudden or life threatening deterioration of the following system(s) required my full and direct attention, intervention and personal management. The time I documented below is in addition to time spent performing reported procedures but includes the following listed in this critical care notation. Medical Decision Making - Medical Records Medical records reviewed: Yes: I reviewed the patient's medical records. - Miles Inquiry Pt receiving controlled substance: No Vital Signs: 02/11/20 22:01 Temperature 98.9 F Temperature Source Oral Pulse Rate [Right] 89 Respiratory Rate 16 Blood Pressure [Right Arm] 117/68 Blood Pressure Mean [Right Arm] 84 Blood Pressure Source [Right Arm] Automatic Cuff Blood Pressure Position [Right Arm] Sitting 02 Sat by Pulse Oximetry 98 Oxygen Delivery Method Room Air - Lab Data Lab results reviewed: Yes: I reviewed the patient's lab results. Lab Results 02/11/20 22:15: Urine Color Yellow, Urine Appearance Cloudy, Urine pH 6.0, Ur Specific Haughton >= 1.030, Urine Protein Negative, Urine Glucose (UA) Negative, Urine Ketones Negative, Urine Blood Negative, Urine Nitrate Negative, Urine Bilirubin Negative, Urine Urobilinogen 0.2, Ur Leukocyte Esterase Negative, Amorphous Sediment 4+ 02/11/20 22:15: Urine HCG, Qual Negative 02/11/20 22:20: WBC 8.0, RBC 4.74, Hgb 13.9, Hct 41.9, MCV 88.4, MCH 29.2, MCHC 33.1, RDW 12.4, Plt Count 245, MPV 8.8, Neut % (Auto) 64.1, Lymph % (Auto) 27.9, Vernon % (Auto) 5.7, Eos % (Auto) 1.2, Baso % (Auto) 1.0, Neut # (Auto) 5.1, Lymph # (Auto) 2.2, Vernon # (Auto) 0.5, Eos # (Auto) 0.1, Baso # (Auto) 0.1 02/11/20 22:20: Sodium 140, Potassium 3.9, Chloride 106, Carbon Dioxide 26, Anion Gap 11.9, BUN 15, Creatinine 0.70, Estimated Creat Clear 158, Estimated GFR 98, Est GFR ( Amer) 118, Glucose 103 H, Calcium 9.5, Total Bilirubin 0.2, AST 24, ALT 23, Alkaline Phosphatase 58, C-Reactive Protein 5.7 H, Total Protein 7.0, Albumin 4.2, Globulin 2.8, Albumin/Globulin Ratio 1.5 Result diagrams: 02/11/20 22:20 02/11/20 22:20 Orders (Tests/Meds): ED MEDICATIONS Generic Name Dose Route Start Last Admin Trade Name Freq PRN Reason Stop Dose Admin Sodium Chloride 1,000 mls @ 999 mls/hr 02/11/20 22:30 02/11/20 22:37 Sod Chlor 0.9% 1000ml Bag IV 02/11/20 23:30 999 mls/hr .Q1H1M FORTUNATO Administration Discontinued Medications Generic Name Dose Route Start Last Admin Trade Name Freq PRN Reason Stop Dose Admin Ketorolac Tromethamine 30 mg 02/11/20 22:24 02/11/20 22:36 Toradol 30mg/Ml Vial IV 02/11/20 22:25 30 mg ONCE ONE Administration Methylprednisolone Sodium Succinate 125 mg 02/11/20 22:24 02/11/20 22:36 Solu-Medrol 125mg/2ml Vial IV 02/11/20 22:25 125 mg ONCE ONE Administration Ondansetron HCl 4 mg 02/11/20 22:24 02/11/20 22:36 Zofran 4mg/2ml Vial IV 02/11/20 22:25 4 mg ONCE ONE Administration ORDERS Category Date Time Status Complete Blood Count Auto Diff Stat Lab 02/11/20 22:20 Results Erythrocyte Sedimentation Rate Stat Lab 02/11/20 22:20 Results - Reevaluation(s) Time: 22:59 Reevaluation #1: improved Headache HPI - General Chief Complaint: Headache Stated Complaint: BURNETT Time Seen by Provider: 02/11/20 22:20 Mode of Arrival: Ambulatory Source of Information: Patient, Medical Record Limitations: No Limitations Stefan
[2020-02-11 22:58] LABS: Erythrocyte Sedimentation Rate 21 mm/hr (0-20)
[2020-02-11 23:19] VITALS: BP 120/64; PULSE 76; RESP 14; TEMP 37.2; O2SAT 98
== END 2020-02-11 23:21 | disposition home or self-care (01) ==
PROVIDERS: Emergency Provider Emergency Medicine; PCP Family Medicine
DX: G43.009 Migraine without aura, not intractable, without status migrainosus (principal)
CPT/HCPCS: 80053; 81001; 81025; 85025; 85651; 86140; 96365; 96375; 99283; J2405

== ENCOUNTER 2020-02-21 17:30 | Emergency (ER) | payer BC, SELFPAY ==
[2020-02-21 17:35] VITALS: BP 126/70; PULSE 76; RESP 18; TEMP 36.8; O2SAT 96; BMI 32.5
[2020-02-21 17:40] VITALS: BP 126/70; PULSE 76; RESP 18; TEMP 36.8; O2SAT 96; BMI 32.3
--- NOTE | 2020-02-21 18:11 | HMH.EDUTC ---
[facility] [place] Disposition Clinical Impression: Migraine Qualifiers: Migraine type: unspecified Status migrainosus presence: without status migrainosus Intractability: not intractable Qualified Code(s): G43.909 - Migraine, unspecified, not intractable, without status migrainosus Disposition: Home, Self-Care Condition on Discharge: Good Instructions: Migraine -- Adult Additional Instructions: Go home lay down and try to sleep off remaining headache *If you need something else for pain, may take over the counter Tylenol No Motrin for the next 8-10 hours Return if needed Straight to ER if any life threatening symptoms Follow up with family doctor for further treatment and evaluation for migraine headaches Referrals: Mamadou Stephenson MD [Primary Care Provider] - Forms: Work/School Release Time of Disposition: 19:00 Medical Decision Making - Miles Inquiry Pt receiving controlled substance: No Miles was queried for this patient: No Vital Signs: 02/21/20 17:35 02/21/20 17:40 02/21/20 19:14 Temperature 98.2 F 98.2 F 98.5 F Temperature Source Oral Oral Oral Pulse Rate 70 Pulse Rate [Radial] 76 76 Respiratory Rate 18 18 16 Blood Pressure 124/70 Blood Pressure [Right Arm] 126/70 126/70 Blood Pressure Mean [Right Arm] 88 88 Blood Pressure Source Automatic Cuff Blood Pressure Source [Right Arm] Automatic Cuff Automatic Cuff Blood Pressure Position Sitting Blood Pressure Position [Right Arm] Sitting Sitting 02 Sat by Pulse Oximetry 96 96 Oxygen Delivery Method Room Air Room Air Room Air Orders (Tests/Meds): ED MEDICATIONS Discontinued Medications Generic Name Dose Route Start Last Admin Trade Name Ziyadq PRN Reason Stop Dose Admin Diphenhydramine HCl 25 mg 02/21/20 18:59 02/21/20 19:13 Benadryl 50mg/1ml Vial IM 02/21/20 19:00 25 mg ONCE ONE Administration Ketorolac Tromethamine 60 mg 02/21/20 18:59 02/21/20 19:13 Toradol 60mg/2ml Vial IM 02/21/20 19:00 60 mg ONCE ONE Administration Metoclopramide HCl 10 mg 02/21/20 18:59 02/21/20 19:13 Metoclopramide 10mg Tablet PO 02/21/20 19:00 10 mg ONCE ONE Administration - Reevaluation(s) Time: 18:15 Reevaluation #1: Patient denies chance of states that she has a mirana, patient states that she hasnt taken any over the counter Medication for the headache due to just started a little while ago and she didnt have any thing to take. Patient advised that she could not drive on the medication given for migraines in the [facility] and she called her to pick her up awaiting his arrival to give medication Time: 18:40 Reevaluation #3: Patient state that she got up with family to come and pick her up awaiting their arrival to give medication Time reevaluation 3: 19:16 Reevaluation #2: Family here to drive patient home, patient educated to go home lay down and sleep off remainder of migraine headache [facility] [place] HPI - General Stated complaint: BURNETT Time Seen by Provider: 02/21/20 18:11 Mode of Arrival: Ambulatory Source of Information: Patient Limitations: No Limitations Description of Symptoms (Recalled from Triage Doc. by RN): c/o migraine since 4:30 HEENT Symptoms (Recalled from RN notes): No Resp Symptoms (Recalled from RN notes): No Skin Symptoms (Recalled from RN notes): No MS Symptoms (Recalled from RN notes): No Functional Status (Recalled from RN notes): na - History of Present Illness Provider Complaint: Patient states that she has a history of migraine headaches, States hasnt had her migraine medication since she moved and lost the script. States that earlier today she was on her way to work and started with a migraine headache again and it made her sick at her stomach States that she was unable to go to work so she came in to get checked - Related Data Home Medications Medication Instructions Recorded Confirmed No Known Home Medications 02/11/20 02/21/20 Allergies Allergy/AdvReac Type Severity R
[2020-02-21 19:14] VITALS: BP 124/70; PULSE 70; RESP 16; TEMP 36.9; O2SAT 98
== END 2020-02-21 19:17 | disposition home or self-care (01) ==
PROVIDERS: Emergency Provider Nurse Practitioner; PCP Family Medicine
DX: G43.909 Migraine, unspecified, not intractable, without status migrainosus (principal)
CPT/HCPCS: 96372; 99201

== ENCOUNTER 2020-06-24 11:10 | Emergency (ER) | payer OTHER, SELFPAY ==
[2020-06-24 11:10] VITALS: BP 137/71; PULSE 77; RESP 16; TEMP 37.2; O2SAT 98; BMI 36.0
--- NOTE | 2020-06-24 11:27 | HMH.EDHA ---
ED Disposition Clinical Impression: Sinusitis chronic, frontal Headache Qualifiers: Headache type: other headache syndrome Qualified Code(s): G44.89 - Other headache syndrome Disposition: Home, Self-Care Condition on Discharge: Good Instructions: Sinus Headache Referrals: Mamadou Stephenson MD [Primary Care Provider] - - Critical Care Critical Care Time: No Attestation: On 06/24/20, the high probability of a clinically significant, sudden or life threatening deterioration of the following system(s) required my full and direct attention, intervention and personal management. The time I documented below is in addition to time spent performing reported procedures but includes the following listed in this critical care notation. Medical Decision Making - Miles Inquiry Pt receiving controlled substance: No Vital Signs: 06/24/20 11:10 Temperature 99 F Temperature Source Oral Pulse Rate [Left Radial] 77 Respiratory Rate 16 Blood Pressure [Right Arm] 137/71 Blood Pressure Mean [Right Arm] 93 Blood Pressure Position [Right Arm] Sitting 02 Sat by Pulse Oximetry 98 Oxygen Delivery Method Room Air Headache HPI - General Chief Complaint: Headache Stated Complaint: sinus headache Time Seen by Provider: 06/24/20 11:25 Mode of Arrival: Ambulatory Source of Information: Patient Limitations: No Limitations Description of Symptoms (Recalled from ER Triage Doc. by RN): TO ED PER [employer] CAR WITH C/O SINUS HEADACHE X SEVERAL DAYS, STATES HER ALLERGY MEDS ARE NOT WORKING. DENIES FEVER, CHILLS, NAUSEA, VOMITING. - History of Present Illness HPI Narrative: This is a 30-year-old female presents with intermittent headache times several days. Pain located at the frontal and maxillary sinuses. Patient reports chronic sinusitis and hayfever. No fever no chills no body aches. Patient currently on antihistamines and intranasal corticosteroids. Patient also taking pseudoephedrine. Patient reports no relief with these medications. Pain rated at 7 out of 10 in intensity is dull without modifying symptoms. No nuchal rigidity or photophobia. No nausea or vomiting. - Related Data Home Medications Medication Instructions Recorded Confirmed No Known Home Medications 02/11/20 02/21/20 Allergies Allergy/AdvReac Type Severity Reaction Status Date / Time No Known Allergies Allergy Verified 02/21/20 17:43 [facility] History - Hepatitis A Screen Drug use history?: No High risk sexual behaviors?: No History of sexually transmitted infection?: No Currently employed?: No Childcare worker?: No Do you have indoor plumbing?: Yes Do you have electricity?: Yes Attestation statement:: This patient has been screened for Hepatitis A risk factors. I have reviewed the patient's past medical history: Yes Medical History: Denies:: Anxiety, Depression, Diabetes Mellitus Type 1, Diabetes Mellitus Type 2, Hypertension, Migraine, MRSA, Seizures Laterality Cases: Bilateral: Other Other Surgeries: Yes: Other. No: Amputation: No Fractures: No Comment: Vaginal delivery 5 months ago. - Social History Smoking Status: Never smoker Alcohol Intake: never Alcohol Intake Frequency:: holidays/special occasions only Substance Use Type: denies use Occupational Status: other Housing: other Household Members: other - Psychiatric History Pschychiatric History:: Denies:: Anxiety, Depression Family Hx:: Heart Attack, Hyperlipidemia, Hypertension, Cancer ROS Obtained: Yes All systems reviewed & no additional complaints Physical Exam - General General appearance: alert, in no apparent distress - Head Head exam: atraumatic, normocephalic - Eye Eye exam: Present: normal appearance, PERRL, EOMI - ENT ENT exam: Present: normal exam, normal oropharynx, mucous membranes moist - Neck Neck exam: Present: normal inspection - Chest Chest inspection: Present: normal inspection, symmetric chest wall rise - R
[2020-06-24 11:54] VITALS: BP 112/74; PULSE 77; RESP 16; TEMP 37.2; O2SAT 98
== END 2020-06-24 11:56 | disposition home or self-care (01) ==
PROVIDERS: Emergency Provider Emergency Medicine; PCP Family Medicine
DX: J32.1 Chronic frontal sinusitis (principal); G44.89 Other headache syndrome
CPT/HCPCS: 96372; 99281

== ENCOUNTER → 2021-02-21 10:17 | Outpatient (CLI) | payer OTHER, SELFPAY ==
--- NOTE | 2021-02-21 10:24 | XR_ITS ---
PROCEDURE: XR CHEST 2V CLINICAL HISTORY: BRONCHITIS,SOB COMPARISON: CR CXR CHEST(2 VIEWS-NOT PORTABLE) from 09/24/2017 FINDINGS: The cardiomediastinal silhouette and pulmonary vascularity are within normal limits. The lungs are clear without infiltrates, suspicious nodules, or pleural effusions. No acute bony abnormalities. IMPRESSION: No acute findings. Dictated by: Myriam Kam 02/21/2021 13:06 Myriam Kam in [place] 02/21/2021 13:06
== END ==
PROVIDERS: PCP Family Medicine; Visit Provider Family Medicine
DX: J20.9 Acute bronchitis, unspecified (principal); R06.02 Shortness of breath
CPT/HCPCS: 71046

== ENCOUNTER → 2021-04-20 09:48 | Outpatient (CLI) | payer OTHER, SELFPAY ==
[2021-04-20 09:53] LABS: Adenovirus F 40/41, stool Not Detected (NotDetected); Astrovirus Not Detected (NotDetected); Campylobacter Not Detected (NotDetected); Clostridium Difficile A/B, PCR Not Detected (NotDetected); Cryptosporidium Not Detected (NotDetected); Cyclospora Cayetanesis Not Detected (NotDetected); Entamoeba histolytica Not Detected (NotDetected); Enteroaggregative E coli Not Detected (NotDetected); Enterotoxigenic E coli Not Detected (NotDetected); Giardia lamblia Not Detected (NotDetected); Norovirus Not Detected (NotDetected); Plesimonas Shigalloides, PCR Not Detected (NotDetected); Rotavirus A Not Detected (NotDetected); Salmonella, PCR Not Detected (NotDetected); Sapovirus Not Detected (NotDetected); Shiga-like toxin E coli Not Detected (NotDetected); Shigella Enterovasive E coli Not Detected (NotDetected); Vibrio Cholerae Not Detected (NotDetected); Vibrio, PCR Not Detected (NotDetected); Yersinia Entercolitica, PCR Not Detected (NotDetected)
[2021-04-20 13:26] LABS: Enteropathogenic E coli Detected (NotDetected)
== END ==
PROVIDERS: Visit Provider Nurse Practitioner Family
DX: R19.7 Diarrhea, unspecified (principal); R50.9 Fever, unspecified; A04.0 Enteropathogenic Escherichia coli infection
CPT/HCPCS: 87507

== ENCOUNTER → 2021-07-31 09:49 | Outpatient (CLI) | payer OTHER, SELFPAY | PROVIDERS: PCP Family Medicine; Visit Provider Nurse Practitioner | DX: Z20.822 Contact with and (suspected) exposure to COVID-19 (principal); U07.1 COVID-19 | CPT/HCPCS: C9803; U0003; U0005 ==